=== PATIENT | female | born 1975 | race Caucasian/White ===

== ENCOUNTER 2018-08-24 10:34 | Outpatient (CLI) | payer BC ==
--- NOTE | 2018-08-24 12:41 | MMO ---
BILATERAL MAMMOGRAMS: History: Screening mammography. Comparison: Multiple exams back to 04-10-14. FINDINGS: Scattered fibroglandular densities and benign appearing calcifications. No dominant mass or suspiciou s calcifications. Metallic clip at the superior posterior aspect right breast indicates region of kajal or biopsy. This study was evaluated with the assistance of computer aided detection. IMPRESSION: BIRADS category 2 - benign findings. Suggest routine follow up. POS: [facility]
== END 2018-08-24 10:35 | disposition home or self-care (01) ==
LOC: SCSMAMMO 10:34
PROVIDERS: ATTEND Obstetrics & Gynecology
DX: Z12.31 Encounter for screening mammogram for malignant neoplasm of breast (principal)
CPT/HCPCS: 77067